=== PATIENT | female | born 1960 | race American Indian/Alaskan Native ===

== ENCOUNTER 2021-03-28 12:05 | Emergency (ER) | payer MEDICARE ==
[2021-03-28] MEDS ORDERED: ONDANSETRON 4 MG/2 ML INJ IV ONE (13:17)
[2021-03-28] MEDS ORDERED: FLUORESCEIN 1 MG STRIP OP ONE (13:17)
[2021-03-28] MEDS ORDERED: MORPHINE 4 MG/1 ML INJ IV ONE (13:17)
[2021-03-28] MEDS ORDERED: TETRACAINE 0.5% OPHTH SOLN 4ML OU ONE (13:19)
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
[2021-03-28 21:31] VITALS: BP 232/205
== END 2021-03-28 18:15 | disposition home or self-care (01) ==
LOC: ED 12:05
DX: S05.02XA Injury of conjunctiva and corneal abrasion without foreign body, left eye, initial encounter (principal); R58 Hemorrhage, not elsewhere classified; R07.89 Other chest pain; Z88.2 Allergy status to sulfonamides; Y09 Assault by unspecified means; Y93.89 Activity, other specified; Y92.89 Other specified places as the place of occurrence of the external cause; Y99.8 Other external cause status
CPT/HCPCS: 70450; 70486; 71046; 96374; 96375; 99284; J2270; J2405

== ENCOUNTER 2021-07-03 14:42 | Emergency (ER) | payer MEDICARE ==
[2021-07-03] MEDS ORDERED: oxyCODONE /ACETAMINOPHEN 5-325MG TAB PO ONE (16:11)
[2021-07-03] MEDS ORDERED: dexAMETHasone 20 MG/5 ML VIAL IM ONE (16:11)
[2021-07-03] MEDS ORDERED: KETOROLAC 60 MG/2 ML INJ IM ONE (16:11)
--- NOTE | 2021-07-03 16:23 | Emergency Department Report ---
ED Lower Extremity HPI - General Chief Complaint: Extremity Injury, Lower Stated Complaint: RT LEG PAIN Time Seen by Provider: 07/03/21 16:01 Source: patient, EMS Mode of arrival: Stretcher Limitations: No Limitations - History of Present Illness Initial Comments: 60-year-old female with a past medical history of hypertension and asthma presents to the hospital planing of right buttock and right thigh pain for the past 6 days. Pain is feels like a constant "charley horse "and also described as a sharp nerve pain. Pain is worse with palpation to right buttock and anterior right thigh. Patient taking gabapentin without relief. Patient chronically takes gabapentin for pain related to neck and shoulder area. Last year patient saw a specialist regarding this pain in her right thigh and was not provided a diagnosis. No recent trauma, numbness weakness, fall, back pain, urinary incontinence, or retention reported. No history of DVT, PE, recent travel or immobilization. Patient denies taking cholesterol medication - Related Data Previous Rx's Medication Instructions Recorded Last Taken Type Erythromycin [Erythromycin Ophth 0.5 inch OS Q4HR 7 Days 03/28/21 Unknown Rx Oint] HYDROcodone/APAP 5-325 [[place] 1 each PO Q6HR PRN #15 tablet 03/28/21 Unknown Rx 5/325] Ibuprofen [Motrin] 800 mg PO Q8HR PRN #20 tablet 07/03/21 Unknown Rx traMADoL [Ultram 50 MG tab] 50 mg PO Q6HR PRN #20 tablet 07/03/21 Unknown Rx Allergies Allergy/AdvReac Type Severity Reaction Status Date / Time Sulfa (Sulfonamide Allergy Hives Verified 03/28/21 14:20 Antibiotics) ED Review of Systems ROS: Stated complaint: RT LEG PAIN Other details as noted in HPI Comment: All other systems reviewed and negative ED Past Medical Hx - Medications Home Medications: Home Medications Medication Instructions Recorded Confirmed Last Taken Type Erythromycin [Erythromycin Ophth 0.5 inch OS Q4HR 7 Days 03/28/21 Unknown Rx Oint] HYDROcodone/APAP 5-325 [[place] 1 each PO Q6HR PRN #15 tablet 03/28/21 Unknown Rx 5/325] Ibuprofen [Motrin] 800 mg PO Q8HR PRN #20 tablet 07/03/21 Unknown Rx traMADoL [Ultram 50 MG tab] 50 mg PO Q6HR PRN #20 tablet 07/03/21 Unknown Rx ED Physical Exam - General Limitations: No Limitations - Other Other exam information: General: No acute distress Head: Atraumatic Eyes: normal appearance ENT: Moist mucous membranes Neck: Normal appearance, no midline tenderness Chest: Clear to auscultation bilaterally CV: Regular rate and rhythm Abdomen: Soft, normal bowel sounds, nontender, nondistended, no rebound or guarding Back: Normal inspection Extremity: Tenderness to right gluteal area at sciatic notch and also tenderness to the anterior medial thigh with palpation. No tenderness to calf. No swelling or leg asymmetry. Right 2+ DP pulse. Patient able to bear weight prior to medication in the ED Neuro: Alert O x 3, no facial asymmetry, speech clear, no gross motor sensory deficit Psych: Appropriate behavior Skin: No rash ED Course Vital Signs 07/03/21 14:52 Temperature 98.6 F Pulse Rate 78 Respiratory 16 Rate Blood Pressure 155/86 [Left] O2 Sat by Pulse 100 Oximetry ED Lower Extremity MDM - Medical Decision Making 60-year-old female with right gluteal pain and anterior thigh pain described as a charley horse. Pain reproducible on palpation. Pain is constant for the last 6 days but has occurred in the past with outpatient specialist work-up and evaluation. She is currently taking gabapentin without relief. Patient has 2+ distal DP pulse with warm extremities therefore low suspicion for acute vascular occlusion. Patient also does not have any urinary symptoms weakness or numbness on examination to support cauda equina or acute herniated disc with significant nerve compression. Patient also denies taking Lipitor/cholesterol medication which will put him at risk for rhabdo and does not have any other areas of pain. Patient medicated with Decadron, Toradol, and Percocet in the ED. Patient feeling better with ED treatment - Differential Diagnosis Sciatica, pinched nerve, radiculopathy, Critical Care Time: No Critical care attestation.: If time is entered above; I have spent that time in minutes in the direct care of this critically ill patient, excluding procedure time. ED Disposition Clinical Impression: Piriformis syndrome Disposition: HOME / SELF CARE / HOMELESS Is pt being admited?: No Does the pt Need Aspirin: No Condition: Stable Instructions: Piriformis Syndrome Additional Instructions: Take the medication as prescribed. Continue gabapentin as prescribed. follow-up with your doctor or doctor/clinic provided. Return if symptoms worsen as indicated by your discharge instructions. Prescriptions: Ibuprofen [Motrin] 800 mg PO Q8HR PRN #20 tablet PRN Reason: Pain , Severe (7-10) traMADoL [Ultram 50 MG tab] 50 mg PO Q6HR PRN #20 tablet PRN Reason: Pain Referrals: SUSAN NUNEZ MD [Staff Physician] - 3-5 Days (Primary care doctor) Time of Disposition: 18:02
[2021-07-03 18:33] VITALS: BP 135/84
== END 2021-07-03 18:32 | disposition home or self-care (01) ==
LOC: ED 14:42
DX: G57.01 Lesion of sciatic nerve, right lower limb (principal); M54.50 Low back pain, unspecified; Z88.2 Allergy status to sulfonamides; Z79.899 Other long term (current) drug therapy
CPT/HCPCS: 96372; 99283; J1100; J1885